=== PATIENT | female | born 1960 | race Caucasian/White ===

== ENCOUNTER → 2018-06-20 | Outpatient (CLI) | payer BC ==
[~2018-06-20] MED LIST: ACETAMINOPHEN-1 EAC1 PO; ALLEGRA; ALLEGRA-D 24 H1 EACH PO; AMOXICILLIN 50500 MG PO; CIPROFLOXIN HC2.5 M1 OPHTHALMIC; FISH OIL 1,001000 M2 PO; VITAMIN C500 M1 PO; VITAMIN D400 UNIT PO
== END ==
LOC: M.RAD 06-18 10:00
DX: Z12.31 Encounter for screening mammogram for malignant neoplasm of breast (principal)

== ENCOUNTER → 2019-06-21 | Outpatient (CLI) | payer BC | LOC: M.RAD 09:49 | DX: Z12.31 Encounter for screening mammogram for malignant neoplasm of breast (principal) ==

== ENCOUNTER → 2020-06-22 | Outpatient (CLI) | payer BC | LOC: M.RAD 09:53 | PROVIDERS: ATTEND Family Medicine | DX: Z12.31 Encounter for screening mammogram for malignant neoplasm of breast (principal) ==

== ENCOUNTER → 2021-06-30 | Outpatient (CLI) | payer BC | LOC: M.RAD 13:48 | PROVIDERS: ATTEND Family Medicine | DX: Z12.31 Encounter for screening mammogram for malignant neoplasm of breast (principal) ==